=== PATIENT | female | born 1970 | race African-American/Black ===

== ENCOUNTER 2024-01-11 08:14 | Emergency (ER) | payer BC, OTHER ==
[2024-01-11] MEDS ORDERED: Ketorolac Tromethamine 30 MG (1 mL) VIAL ONE (08:51)
== END 2024-01-11 09:27 | disposition home or self-care (01) ==
LOC: NAV ERS 08:14
DX: M54.42 Lumbago with sciatica, left side (principal)
CPT/HCPCS: 96372; 99283; J1885